=== PATIENT | female | born 1970 | race Caucasian/White ===

== ENCOUNTER → 2023-03-26 14:34 | Outpatient (BNVA) | payer OTHER, SELFPAY | PROVIDERS: PCP Family Medicine; Visit Provider Family Medicine | DX: N39.0 Urinary tract infection, site not specified (principal); I10 Essential (primary) hypertension; M62.838 Other muscle spasm; L30.9 Dermatitis, unspecified; Z13.6 Encounter for screening for cardiovascular disorders | CPT/HCPCS: 80053; 80061; 81000; 85025 ==

== ENCOUNTER → 2023-07-16 11:45 | Outpatient (BNVA) | payer OTHER, SELFPAY | PROVIDERS: PCP Family Medicine; Visit Provider Family Medicine | DX: R74.8 Abnormal levels of other serum enzymes (principal) | CPT/HCPCS: 80053 ==

== ENCOUNTER → 2024-01-10 10:14 | Outpatient (BNVA) | payer OTHER, SELFPAY | PROVIDERS: PCP Family Medicine; Visit Provider Family Medicine | DX: I10 Essential (primary) hypertension (principal); R74.8 Abnormal levels of other serum enzymes; R77.9 Abnormality of plasma protein, unspecified | CPT/HCPCS: 80053; 80061; 83036; 84155; 84165; 85025 ==

== ENCOUNTER → 2024-09-17 08:54 | Outpatient (BNVA) | payer OTHER, SELFPAY | PROVIDERS: PCP Family Medicine; Visit Provider Family Medicine | DX: I10 Essential (primary) hypertension (principal); E88.09 Other disorders of plasma-protein metabolism, not elsewhere classified; R74.8 Abnormal levels of other serum enzymes; R77.9 Abnormality of plasma protein, unspecified; E03.9 Hypothyroidism, unspecified | CPT/HCPCS: 80053; 80061; 82306; 82607; 83036; 84443; 85025 ==

== ENCOUNTER → 2024-11-18 10:25 | Outpatient (BNVA) | payer OTHER, SELFPAY | PROVIDERS: PCP Family Medicine; Visit Provider Family Medicine | DX: R79.89 Other specified abnormal findings of blood chemistry (principal); E03.9 Hypothyroidism, unspecified; E55.9 Vitamin D deficiency, unspecified; R77.9 Abnormality of plasma protein, unspecified | CPT/HCPCS: 82306; 84436; 84443; 84481 ==